=== PATIENT | male | born 1980 | race Two or more races ===

== ENCOUNTER 2019-01-11 16:33 | Emergency (ER) | payer BC ==
[~2019-01-11] VITALS: Ht 182.9 cm; Wt 158.8 kg
[2019-01-11 17:12] VITALS: BP 198/93
[2019-01-11] MEDS ORDERED: LIDOCAINE 1% Multi-Dose 20 ML VIAL. INJ ONE (17:15)
--- NOTE | 2019-01-11 17:16 | PHYS DOC ---
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 Denies any pain. Review of Systems Review of Systems Integument: Dorsal thumb laceration. Denies rash or skin lesions [] All other systems were reviewed and found to be within normal limits, except as documented in this note. Current Medications Current Medications Current Medications Medications (Trade) Dose Ordered Sig/Raymond Start Time Stop Time Status Last Admin Dose Admin Diphtheria/ Tetanus/Acell Pertussis (Boostrix) 0.5 ml ONCE ONCE 01/11/19 17:30 01/11/19 17:33 DC 01/11/19 17:37 0.5 ML Lidocaine HCl (Lidocaine 1% 20ml Vial) 20 ml STK-MED ONCE 01/11/19 17:32 01/11/19 17:33 DC Allergies Allergies Allergies Coded Allergies Type Severity Reaction Last Updated Verified No Known Drug Allergies 01/11/19 No Physical Exam Physical Exam Constitutional: Well developed, well nourished, no acute distress, non-toxic appearance. [] Skin: Dorsal thumb laceration. Warm, dry, no erythema, no rash. [] Extremities: No tenderness, no cyanosis, no clubbing, ROM intact, no edema. [] Neurologic: Alert and oriented X 3, normal motor function, normal sensory function, no focal deficits noted. [] Psychologic: Affect normal, judgement normal, mood normal. [] Current Patient Data Vital Signs Vital Signs Date Time Temp Pulse Resp B/P (MAP) Pulse Ox O2 Delivery O2 Flow Rate FiO2 01/11/19 17:12 98.2 89 18 198/93 (128) 98 Room Air 98.2 EKG EKG [] Radiology/Procedures Radiology/Procedures [] Impressions: [facility] [address] [place] [address] IMAGING REPORT Signed PATIENT: KETAN PELAEZACCOUNT: [id number] : 1980 LOCATION: ER AGE: 38 SEX: M EXAM STATUS: REG ER ORD. PHYSICIAN: BAFUS,TASIA M FOUNTAIN WAITRESS/WAITER REASON: laceration PROCEDURE: HAND RIGHT 3V EXAM: Right hand, 3 views. HISTORY: Pain. Laceration. COMPARISON: None. FINDINGS: 3 views of the left hand are obtained. There is no fracture, dislocation or subluxation. No radiodense foreign body is seen. IMPRESSION: No acute osseous finding. Electronically signed by: Maame Bah MD (01/11/2019 5:31 PM) [facility] DICTATED and SIGNED BY: MAAME BAH MD DATE: 01/11/19 173 Course & Med Decision Making Course & Med Decision Making Laceration does not extend to muscle or ligament or bone. When looking inside the laceration he cannot see muscle or ligament or bone. Patient has a 2 cm dorsal thumb laceration. Bleeding is controlled. Patient doesn't yet Boostrix. Patient can bend the thumb at all joints without complication. No foreign body seen. Laceration Repair by me: Anesthesia: 1% lidocaine locally Location: Left dorsal thumb Tendon/Joint/Nerves: No injury Foreign body: None detected after copious irrigation and exploration Technique: 6 Simple Interrupted Sutures Complexity: No subcutaneous sutures/mucosal repair/edge excision Post Closure Length: 2 cm Patient's bleeding was easily controlled in the department and there is no indication of anemia. No evidence of compartment syndrome, neurologic injury, vascular injury, open joint, tendon laceration, or foreign body. Patient is appropriate for outpatient follow up. 48 hour wound check. Scar minimization instructions given. Dragon Disclaimer Dragon Disclaimer This electronic medical record was generated, in whole or in part, using a voice recognition dictation system. Departure Departure Impression: Primary Impression: Laceration Disposition: 01 HOME, SELF-CARE Condition: STABLE Referrals: NO PCP (PCP) Patient Instructions: Laceration Care, Adult Additional Instructions: Follow-up her primary care return to the emergency room in 10 days to have sutures removed. Watch for signs of infection such as redness, drainage, increased pain or swelling. Ibuprofen for any kind of pain. TASIA SALAZAR FOUNTAIN WAITRESS/WAITER Jan 11, 2019 17:16
[2019-01-11] MEDS ORDERED: DIPHTH,PERTUSS(ACELL),TET TOX 0.5 ML DISP.SYRIN. VAX IM ONE (17:30)
[2019-01-11] MEDS ORDERED: LIDOCAINE 1% Multi-Dose 20 ML VIAL. ONE (17:32)
--- NOTE | 2019-01-11 17:34 | RAD ---
EXAM: Right hand, 3 views. HISTORY: Pain. Laceration. COMPARISON: None. FINDINGS: 3 views of the left hand are obtained. There is no fracture, dislocation or subluxation. No radiodense foreign body is seen. IMPRESSION: No acute osseous finding. Electronically signed by: Maame Bah MD (01/11/2019 5:31 PM) [facility]
--- NOTE | 2019-01-13 14:36 | RAD ---
EXAM: Left hand, 3 views. HISTORY: Pain. Laceration. COMPARISON: None. FINDINGS: 3 views of the left hand are obtained. There is no fracture, dislocation or subluxation. No radiodense foreign body is seen. IMPRESSION: No acute osseous finding. Electronically signed by: Maame Bah MD (01/11/2019 5:31 PM) [facility]
== END 2019-01-11 18:16 | disposition home or self-care (01) ==
LOC: ER 16:33
DX: S61.012A Laceration without foreign body of left thumb without damage to nail, initial encounter (principal); X58.XXXA Exposure to other specified factors, initial encounter; Y93.H2 Activity, gardening and landscaping; Y92.9 Unspecified place or not applicable; Y99.9 Unspecified external cause status
CPT/HCPCS: 12001; 73130; 90471; 90715; 99284

== ENCOUNTER 2019-01-16 19:38 | Emergency (ER) | payer BC ==
[~2019-01-16] VITALS: Ht 182.9 cm; Wt 163.3 kg
[2019-01-16 20:21] VITALS: BP 142/87
[2019-01-16] MEDS ORDERED: CEPH-264 PO (21:11)
--- NOTE | 2019-01-16 21:12 | PHYS DOC ---
Past Medical History Past Medical History: Hypertension (TASIA SALAZAR APRN) Past Surgical History: No Surgical History (TASIA SALAZAR APRN) Alcohol Use: None Drug Use: None (TASIA SALAZAR APRN) Attending Signature I have participated in the care of this patient and I have reviewed and agree with all pertinent clinical information above including history, exam, and recommendations. (RUDI MURILLO MD) Adult General Chief Complaint Chief Complaint: LACERATION/AVULSION HPI HPI Patient is a 38 year old male who presents with 5 days ago received sutures to the right dorsal thumb for laceration. Patient in today because it is oozing blood. 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 When patient bends at the thumb it breaks open one part of the healing laceration. (TASIA SALAZAR APRN) Review of Systems Review of Systems Integument: laceration to right thumb scant blood. Denies rash or skin lesions [] All other systems were reviewed and found to be within normal limits, except as documented in this note. (TASIA SALAZAR APRN) Allergies Allergies Allergies Coded Allergies Type Severity Reaction Last Updated Verified No Known Drug Allergies 01/11/19 No (RUDI MURILLO MD) Physical Exam Physical Exam Constitutional: Well developed, well nourished, no acute distress, non-toxic appearance. [] Skin: Redness around the right thumb laceration. Warm, dry, no erythema, no rash. [] Extremities: No tenderness, no cyanosis, no clubbing, ROM intact, no edema. [] Neurologic: Alert and oriented X 3, normal motor function, normal sensory function, no focal deficits noted. [] Psychologic: Affect normal, judgement normal, mood normal. [] (TASIA SALAZAR APRN) Current Patient Data Vital Signs Vital Signs Date Time Temp Pulse Resp B/P (MAP) Pulse Ox O2 Delivery O2 Flow Rate FiO2 01/16/19 20:21 98.9 78 20 142/87 (105) 97 Room Air 98.9 (RUDI MURILLO MD) EKG EKG [] (TASIA SALAZAR APRN) Radiology/Procedures Radiology/Procedures [] (TASIA SALAZAR APRN) Course & Med Decision Making Course & Med Decision Making Alert and oriented. Skin pink warm and dry. Skin around the laceration is reddened and patient states it is slightly tender. There is no purulent drain age. Sutures are intact and laceration to be healing. There is one area in the laceration approximately 1mm in size that is open due to bending and using the thumb. Patient is told to try not to use the thumb joint as much as possible so that this area will heal. I have provided the patient with a antibiotic due to the redness around the laceration. Edges are together and approximated. Patient states he will be back on Day 10 for his sutures removal. (TASIA SALAZAR APRN) Dragon Disclaimer Dragon Disclaimer This electronic medical record was generated, in whole or in part, using a voice recognition dictation system. (TASIA SALAZAR APRN) Departure Departure Impression: Primary Impression: Visit for wound check Disposition: HOME, SELF-CARE Condition: STABLE Referrals: NO PCP (PCP) Patient Instructions: Laceration Care, Adult Additional Instructions: Try not to use the thumb joint so it heals together better. Return on day 10 for suture removal. Take medication as prescribed. Keep area clean and covered. Scripts Cephalexin (KEFLEX) 500 Mg Capsule 500 MG PO QID for 10 Days, #40 CAP Prov: TASIA SALAZAR APRN 01/16/19 TASIA SALAZAR APRN Jan 16, 2019 21:12 RUDI MURILLO MD Jan 17, 2019 18:18
== END 2019-01-16 21:20 | disposition home or self-care (01) ==
LOC: ER 19:38
DX: S61.011D Laceration without foreign body of right thumb without damage to nail, subsequent encounter (principal); I10 Essential (primary) hypertension; X58.XXXD Exposure to other specified factors, subsequent encounter
CPT/HCPCS: 29125; 99283

== ENCOUNTER 2019-01-20 15:28 | Emergency (ER) | payer BC ==
[~2019-01-20] VITALS: Ht 182.9 cm; Wt 163.3 kg
[~2019-01-20 15:28] MED LIST: CEPH-264 PO
[2019-01-20 15:40] VITALS: BP 158/87
[2019-01-20] MEDS ORDERED: SULF1TAB23 PO (16:27)
--- NOTE | 2019-01-20 16:27 | PHYS DOC ---
Past Medical History Past Medical History: Hypertension Past Surgical History: No Surgical History Alcohol Use: None Drug Use: None Adult General Chief Complaint Chief Complaint: SUTURE/STAPLE REMOVAL HPI HPI Patient is a 38 year old male who presents for suture removal from the left thumb, patient does have the sutures 10 days, he states he was seen in the ED approximately 2 days ago with infection to the finger and was started on cephalexin. Review of Systems Review of Systems Constitutional: Denies fever or chills [] Musculoskeletal: Denies back pain or joint pain [] Integument: Visit for suture removal Neurologic: Denies headache, focal weakness or sensory changes [] All other systems were reviewed and found to be within normal limits, except as documented in this note. Allergies Allergies Allergies Coded Allergies Type Severity Reaction Last Updated Verified No Known Drug Allergies 01/11/19 No Physical Exam Physical Exam Constitutional: Well developed, well nourished, no acute distress, non-toxic appearance. [] Skin: Left dorsal thumb at the PIP joint with a dehisced laceration with 5 interrupted sutures, the laceration is infected, is draining yellow material. There is some cellulitis around the laceration site. Neurovascular exam is intact to the left thumb. Back: No tenderness, no CVA tenderness. [] Extremities: No tenderness, no cyanosis, no clubbing, ROM intact, no edema. [] Neurologic: Alert and oriented X 3, normal motor function, normal sensory function, no focal deficits noted. [] Psychologic: Affect normal, judgement normal, mood normal. [] EKG EKG [] Radiology/Procedures Radiology/Procedures [] Course & Med Decision Making Course & Med Decision Making Pertinent Labs and Imaging studies reviewed. (See chart for details) This is a 38-year-old male patient who presents to the ED today for suture removal from the left thumb, and has had sutures placed January 11, unfortunately the laceration site is infected, he was seen in the ED 2 days ago and was started on cephalexin. I removed the stitches, placed patient on Bactrim started him to continue taking the cephalexin. Instructed him to follow up with his own PCP in the course of next week. Dragon Disclaimer Dragon Disclaimer This electronic medical record was generated, in whole or in part, using a voice recognition dictation system. Departure Departure Impression: Primary Impression: Visit for suture removal Additional Impression: Cellulitis of thumb, left Disposition: HOME, SELF-CARE Condition: STABLE Referrals: NO PCP (PCP) Follow up with your doctor in 1-2 weeks Patient Instructions: Skin Infections Additional Instructions: You have an infected laceration site, you are currently on cephalexin, we added you Bactrim, take it with the cephalexin. Try to keep the laceration site clean and dry. You can apply [id number] historian to the laceration sites twice a day. Follow-up with your primary care doctor in the next 1-2 weeks. Scripts Sulfamethoxazole/Trimethoprim (BACTRIM 400-80 MG TABLET) 1 Each Tablet 1 TAB PO BID for 10 Days, #20 TAB 0 Refills Prov: NATALY MEJÍA APRN 01/20/19 Problem Qualifiers NATALY MEJÍA APRN Jan 20, 2019 16:27
== END 2019-01-20 16:34 | disposition home or self-care (01) ==
LOC: ER 15:28
DX: L03.012 Cellulitis of left finger (principal); Z48.02 Encounter for removal of sutures; I10 Essential (primary) hypertension
CPT/HCPCS: 99283

== ENCOUNTER 2019-04-23 08:01 | Emergency (ER) | payer BC ==
[~2019-04-23] VITALS: Ht 182.9 cm; Wt 143.6 kg
[~2019-04-23 08:01] MED LIST changes: +SULF1TAB23 PO
[2019-04-23] MEDS ORDERED: IV NORMAL SALINE 1000ML BAG 1,000 ML IV SCH (09:05)
[2019-04-23 09:25] LABS: BASO % 1 % (0-3); EOS # 0.1 x10^3/uL (0.0-0.7); EOS % 2 % (0-3); HEMATOCRIT 44.5 % (39.0-53.0); LYMPH # 1.2 x10^3/uL (1.0-4.8); LYMPH % 26 % (24-48); MEAN CORPUSCULAR HEMOGLOBIN 28 pg (25-35); MEAN CORPUSCULAR HGB CONC 34 g/dL (31-37); MEAN CORPUSCULAR VOLUME 81 fL (79-100); MONO # 0.3 x10^3/uL (0.0-1.1); MONO % 7 % (0-9); NEUT # 2.9 x10^3/uL (1.8-7.7); NEUT % 65 % (31-73); PLATELET COUNT 164 x10^3/uL (140-400); RED BLOOD COUNT 5.47 x10^6/uL (4.30-5.70); RED CELL DISTRIBUTION WIDTH 14.5 % (11.5-14.5); WHITE BLOOD COUNT 4.5 x10^3/uL (4.0-11.0)
[2019-04-23 09:36] LABS: GFR 82.8; POTASSIUM 4.1 mmol/L (3.5-5.1)
[2019-04-23 09:43] LABS: ALBUMIN 3.5 g/dL (3.4-5.0); ALBUMIN/GLOBULIN RATIO 1.3 (1.0-1.7); TOTAL BILIRUBIN 0.5 mg/dL (0.2-1.0); TOTAL PROTEIN 6.3 g/dL (6.4-8.2)
--- NOTE | 2019-04-23 09:44 | RAD ---
CT ABDOMEN PELVIS WO CONTRAST History: Flank pain. Hematuria. Technique: Noncontrast examination of the abdomen and pelvis. Coronal and sagittal reconstructions were performed. Exposure: One or more of the following individualized dose reduction techniques were utilized for this examination: 1. Automated exposure control 2. Adjustment of the mA and/or kV according to patient size 3. Use of iterative reconstruction technique. Comparison: None Findings: Lower chest: No consolidation or pleural effusion. Abdomen and pelvis: Mild hepatic steatosis. The spleen, adrenal glands, pancreas and gallbladder are unremarkable. Unremarkable appearance of the kidneys. No hydronephrosis. No renal, ureteral or urinary bladder calculus. Normal appendix. No evidence of bowel obstruction. No pathologic lymphadenopathy. No ascites. Bones: Multilevel lumbar spondylosis most prominent L5-S1. Impression: 1. No acute abdominal or pelvic pathology. No obstructing urolithiasis. 2. Mild hepatic steatosis. Electronically signed by: Kendall Vazquez DO (04/23/2019 9:41 AM) [id number]
--- NOTE | 2019-04-23 10:17 | PHYS DOC ---
Past Medical History Past Medical History: Hypertension, Kidney Stone Past Surgical History: No Surgical History Smoking Status: Never Smoker Alcohol Use: None Drug Use: None Adult General Chief Complaint Chief Complaint: FLANK PAIN HPI HPI Patient is a 38 year old patient with history of hypertension and kidney stone who presents with pain of bloody urine and flank pain. Patient states he had hematuria since he woke up this morning associated with right flank pain as a constant aching pain that started couple minutes after urination without radiation of the pain. Patient rated his pain 6/10 and states the pain is different from his usual kidney stone pain. Patient denies nausea and vomiting, fever and chills, recent dehydration, dysuria, using anticoagulation medication. Review of Systems Review of Systems Constitutional: Denies fever or chills [] Eyes: Denies change in visual acuity, redness, or eye pain [] HENT: Denies nasal congestion or sore throat [] Respiratory: Denies cough or shortness of breath [] Cardiovascular: No additional information not addressed in HPI [] GI: Denies abdominal pain, nausea, vomiting, bloody stools or diarrhea [] : Denies dysuria, reports flank pain and hematuria [] Musculoskeletal: Denies back pain or joint pain [] Integument: Denies rash or skin lesions [] Neurologic: Denies headache, focal weakness or sensory changes [] Endocrine: Denies polyuria or polydipsia [] All other systems were reviewed and found to be within normal limits, except as documented in this note. Current Medications Current Medications Current Medications Medications (Trade) Dose Ordered Sig/Raymond Start Time Stop Time Status Last Admin Dose Admin Sodium Chloride 1,000 ml @ 1,000 mls/hr Q1H 04/23/19 09:05 04/23/19 10:04 DC 04/23/19 09:58 1,000 MLS/HR Allergies Allergies Allergies Coded Allergies Type Severity Reaction Last Updated Verified No Known Drug Allergies 01/11/19 No Physical Exam Physical Exam Constitutional: Well developed, well nourished, no acute distress, non-toxic appearance. [] HENT: Normocephalic, atraumatic, bilateral external ears normal, oropharynx moist, no oral exudates, nose normal. [] Eyes: PERRLA, EOMI, conjunctiva normal, no discharge. [] Neck: Normal range of motion, no tenderness, supple, no stridor. [] Cardiovascular:Heart rate regular rhythm, no murmur [] Lungs & Thorax: Bilateral breath sounds clear to auscultation [] Abdomen: Bowel sounds normal, soft, no tenderness, no masses, no pulsatile masses. [] Skin: Warm, dry, no erythema, no rash. [] Back: No tenderness, no CVA tenderness. [] Extremities: No tenderness, no cyanosis, no clubbing, ROM intact, no edema. [] Neurologic: Alert and oriented X 3, normal motor function, normal sensory fu nction, no focal deficits noted. [] Psychologic: Affect normal, judgement normal, mood normal. [] Current Patient Data Vital Signs Vital Signs Date Time Temp Pulse Resp B/P (MAP) Pulse Ox O2 Delivery O2 Flow Rate FiO2 04/23/19 12:01 70 17 145/87 (106) 98 Room Air 04/23/19 08:52 98.8 98.8 Lab Values Laboratory Tests Test 04/23/19 09:05 04/23/19 10:34 White Blood Count 4.5 x10^3/uL (4.0-11.0) Red Blood Count 5.47 x10^6/uL (4.30-5.70) Hemoglobin 15.0 g/dL (13.0-17.5) Hematocrit 44.5 % (39.0-53.0) Mean Corpuscular Volume 81 fL (79-100) Mean Corpuscular Hemoglobin 28 pg (25-35) Mean Corpuscular Hemoglobin Concent 34 g/dL (31-37) Red Cell Distribution Width 14.5 % (11.5-14.5) Platelet Count 164 x10^3/uL (140-400) Neutrophils (%) (Auto) 65 % (31-73) Lymphocytes (%) (Auto) 26 % (24-48) Monocytes (%) (Auto) 7 % (0-9) Eosinophils (%) (Auto) 2 % (0-3) Basophils (%) (Auto) 1 % (0-3) Neutrophils # (Auto) 2.9 x10^3/uL (1.8-7.7) Lymphocytes # (Auto) 1.2 x10^3/uL (1.0-4.8) Monocytes # (Auto) 0.3 x10^3/uL (0.0-1.1) Eosinophils # (Auto) 0.1 x10^3/uL (0.0-0.7) Basophils # (Auto) 0.0 x10^3/uL (0.0-0.2) Prothrombin Time 14.0 SEC (11.7-14.0) Prothrombin Time INR 1.1 (0.8-1.1) Activated Partial Thromboplast Time 28 SEC (24-38) Sodium Level 139 mmol/L (136-145) Potassium Level 4.1 mmol/L (3.5-5.1) Chloride Level 104 mmol/L (98-107) Carbon Dioxide Level 25 mmol/L (21-32) Anion Gap 10 (6-14) Blood Urea Nitrogen 13 mg/dL (8-26) Creatinine 1.0 mg/dL (0.7-1.3) Estimated GFR (Cockcroft-Gault) 82.8 BUN/Creatinine Ratio 13 (6-20) Glucose Level 163 mg/dL (70-99) H Calcium Level 8.0 mg/dL (8.5-10.1) L Total Bilirubin 0.5 mg/dL (0.2-1.0) Aspartate Amino Transferase (AST) 18 U/L (15-37) Alanine Aminotransferase (ALT) 42 U/L (16-63) Alkaline Phosphatase 79 U/L (46-116) Creatine Kinase 86 U/L (39-308) Total Protein 6.3 g/dL (6.4-8.2) L Albumin 3.5 g/dL (3.4-5.0) Albumin/Globulin Ratio 1.3 (1.0-1.7) Urine Collection Type Void Urine Color Yellow Urine Clarity Clear Urine pH 5.5 Urine Specific Buena 1.020 Urine Protein Negative mg/dL (NEG-TRACE) Urine Glucose (UA) Negative mg/dL (NEG) Urine Ketones (Stick) Negative mg/dL (NEG) Urine Blood Moderate (NEG) Urine Nitrite Negative (NEG) Urine Bilirubin Negative (NEG) Urine Urobilinogen Dipstick 0.2 mg/dL (0.2 mg/dL) Urine Leukocyte Esterase Negative (NEG) Urine RBC 20-40 /HPF (0-2) Urine WBC Occ /HPF (0-4) Urine Squamous Epithelial Cells Few /LPF Urine Bacteria 0 /HPF (0-FEW) Urine Mucus Mod /LPF Laboratory Tests 04/23/19 09:05 Laboratory Tests 04/23/19 09:05 EKG EKG [] Radiology/Procedures Radiology/Procedures [facility] [address] [place] [address] IMAGING REPORT Signed PATIENT: KETAN PELAEZ MACCOUNT: [id number] : 1980 LOCATION: ER AGE: 38 SEX: M EXAM STATUS: REG ER ORD. PHYSICIAN: CELESTINO RANGEL MD REASON: hematuria and flank pain PROCEDURE: CT ABDOMEN PELVIS WO CONTRAST CT ABDOMEN PELVIS WO CONTRAST History: Flank pain. Hematuria. Technique: Noncontrast examination of the abdomen and pelvis. Coronal and sagittal reconstructions were performed. Exposure: One or more of the following individualized dose reduction techniques were utilized for this examination: 1. Automated exposure control 2. Adjustment of the mA and/or kV according to patient size 3. Use of iterative reconstruction technique. Comparison: None Findings: Lower chest: No consolidation or pleural effusion. Abdomen and pelvis: Mild hepatic steatosis. The spleen, adrenal glands, pancreas and gallbladder are unremarkable. Unremarkable appearance of the kidneys. No hydronephrosis. No renal, ureteral or urinary bladder calculus. Normal appendix. No evidence of bowel obstruction. No pathologic lymphadenopathy. No ascites. Bones: Multilevel lumbar spondylosis most prominent L5-S1. Impression: 1. No acute abdominal or pelvic pathology. No obstructing urolithiasis. 2. Mild hepatic steatosis. Electronically signed by: Kendall Vazquez DO (04/23/2019 9:41 AM) [id number] DICTATED and SIGNED BY: KENDALL VAZQUEZ DO DATE: 04/23/19 0941 Course & Med Decision Making Course & Med Decision Making Pertinent Labs and Imaging studies reviewed. (See chart for details) Evaluation of patient in ER showed 38-year-old male patient with history of kidney stone and one episode of hematuria and flank pain this morning. Patient didn't want to have pain medication in ER. Patient had unremarkable labs except for hematuria. She did not have gross hematuria while he was in ER and was advised to increase fluid intake and follow up with on-call urologist at [facility]. Dragon Disclaimer Dragon Disclaimer This electronic medical record was generated, in whole or in part, using a voice recognition dictation system. Departure Departure Impression: Primary Impression: Gross hematuria Disposition: HOME, SELF-CARE (at 11 10) Condition: STABLE Referrals: NO PCP (PCP) Patient Instructions: Hematuria, Adult Additional Instructions: Drink plenty of liquids Follow-up with your primary care physician in 3-5 days Return to ER if not getting better Follow-up with [facility] urology team in 2-3 days CELESTINO RANGEL MD Apr 23, 2019 10:17
[2019-04-23 10:50] LABS: BILIRUBIN,URINE NEGATIVE (NEG); CLARITY,URINE CLEAR; COLOR,URINE YELLOW; NITRITE,URINE NEGATIVE (NEG); PH,URINE 5.5; PROTEIN,URINE NEGATIVE (NEG-TRACE); UROBILINOGEN,URINE 0.2 mg/dL (0.2 mg/dL)
[2019-04-23 11:07] LABS: SQUAMOUS EPITHELIAL CELL,UR FEW /LPF
[2019-04-23 11:08] LABS: BACTERIA,URINE 0 /HPF (0-FEW); RBC,URINE 20-40 /HPF (0-2); WBC,URINE OCC /HPF (0-4)
[2019-04-23 12:01] VITALS: BP 145/87
== END 2019-04-23 12:09 | disposition home or self-care (01) ==
LOC: ER 08:01
DX: R31.0 Gross hematuria (principal); R10.9 Unspecified abdominal pain; I10 Essential (primary) hypertension; Z87.442 Personal history of urinary calculi
CPT/HCPCS: 36415; 74176; 80053; 81001; 82550; 85025; 85610; 85730; 99285; J7030